=== PATIENT | male | born 1985 | race Caucasian/White ===

== ENCOUNTER 2017-12-11 09:07 | Emergency (ER) | payer SELFPAY ==
[2017-12-11] MEDS ORDERED: Lidocaine 1% PF 5 ML VIAL ONE (10:24)
[2017-12-11] MEDS ORDERED: Ketorolac Tromethamine 30 MG/ML VIAL ONE (10:40)
[2017-12-11] MEDS ORDERED: methylPREDNISolone Sod Succ/PF 125 MG/2 ML VIAL ONE (10:40)
[2017-12-11] MEDS ORDERED: Pseudoephedrine HCl 30 MG TAB PO SCH (11:30)
== END 2017-12-11 12:25 | disposition home or self-care (01) ==
LOC: ERS 09:07
DX: H65.91 Unspecified nonsuppurative otitis media, right ear (principal); F17.210 Nicotine dependence, cigarettes, uncomplicated
CPT/HCPCS: 96374; 96375; J1885; J2001; J2270; J2930